=== PATIENT | female | born 2000 | race Caucasian/White ===

== ENCOUNTER 2023-08-13 00:09 | Inpatient (IN) | payer BC, SELFPAY ==
[~2023-08-13] VITALS: Ht 149.9 cm; Wt 44.9 kg
[2023-08-13 01:03] LABS: HEMATOCRIT 37.6 % (36.0-47.0); HEMOGLOBIN 13.1 g/dl (12.0-15.5); MEAN CORPUSCULAR HEMOGLOBIN 31.4 pg (27.0-33.0); MEAN CORPUSCULAR HGB CONC 34.8 g/dl (32.0-36.5); MEAN CORPUSCULAR VOLUME 90.2 fl (80.0-96.0); PLATELET COUNT, AUTOMATED 356 10^3/uL (150-450); RED BLOOD COUNT 4.17 10^6/uL (4.00-5.40); WHITE BLOOD COUNT 12.6 10^3/uL (4.0-10.0)
[2023-08-13 01:31] LABS: AMPHETAMINES LEVEL URINE NEGATIVE (NEGATIVE); BARBITURATES URINE NEGATIVE (NEGATIVE); BENZODIAZEPINES URINE NEGATIVE (NEGATIVE); COCAINE METABOLITE URINE NEGATIVE (NEGATIVE); METHADONE URINE NEGATIVE (NEGATIVE); OPIATES URINE NEGATIVE (NEGATIVE); PHENCYCLIDINE URINE NEGATIVE (NEGATIVE)
[2023-08-13 01:32] LABS: CANNABINOIDS URINE POSITIVE (NEGATIVE)
[2023-08-13 01:33] LABS: ETHYL ALCOHOL (ETHANOL) < 0.003 % (0.000-0.010)
[2023-08-13 01:35] LABS: ALBUMIN 4.4 G/DL (3.2-5.2); ALKALINE PHOSPHATASE 56 U/L (46-116); ALT/SGPT 11 U/L (7.0-40); AST/SGOT 15 U/L (<34); BILIRUBIN,DIRECT 0.2 MG/DL (<0.4); BILIRUBIN,TOTAL 0.6 MG/DL (0.3-1.2); BLOOD UREA NITROGEN 9 MG/DL (9-23); CARBON DIOXIDE LEVEL 20 MMOL/L (20-31); CHLORIDE LEVEL 106 MMOL/L (98-107); CREATININE FOR GFR 0.51 MG/DL (0.55-1.30); GLOMERULAR FILTRATION RATE > 60.0 (>60); GLUCOSE, FASTING 93 MG/DL (60-100); POTASSIUM SERUM 3.6 MMOL/L (3.5-5.1); SALICYLATE LEVEL < 3.0 MG/DL (<30); SODIUM LEVEL 136 MMOL/L (136-145); TOTAL PROTEIN 7.1 G/DL (5.7-8.2)
[2023-08-13 01:37] LABS: THYROID STIMULATING HORMONE 2.141 uIU/ML (0.55-4.78)
[2023-08-13 01:40] LABS: HCG, SERUM QUALITATIVE NEGATIVE (NEGATIVE)
[2023-08-13] MEDS: OLANZapine ORAL DISINTEGRATING TAB 5MG PO ONE (05:15)
[2023-08-13] MEDS: UNRESOLVED CLARIFICATION ENTRY XX STA (05:45)
[2023-08-13] MEDS ORDERED: MAALOX 30 ML SUSP *UDC PO PRN (09:05)
[2023-08-13] MEDS ORDERED: MONT10TA97 PO (10:15)
[2023-08-13] MEDS ORDERED: LEVA45AE INH (10:15)
[2023-08-13] MEDS ORDERED: HOME MED LIST COMPLETE! XX SCH (10:15)
[2023-08-13] MEDS ORDERED: CETI-24 PO (10:15)
[2023-08-13 14:30] VITALS: BP 116/79; TEMP 97.5; O2SAT 100
[2023-08-13] MEDS: traZODone 50 MG TAB PO PRN (21:11)
[2023-08-13] MEDS: diphenhydrAMINE 25MG CAP PO PRN (21:47)
[2023-08-13] MEDS: OLANZapine 5 MG TAB PO PRN (22:35)
[2023-08-14] MEDS: ACETAMINOPHEN TAB 650MG DOSE (2X325MG) PO PRN (05:21)
[2023-08-14 06:34] VITALS: BP 121/59; TEMP 99.2; O2SAT 98
[2023-08-14 09:21] LABS: HEMATOCRIT 39.7 % (36.0-47.0); HEMOGLOBIN 13.8 g/dl (12.0-15.5); MEAN CORPUSCULAR HEMOGLOBIN 31.2 pg (27.0-33.0); MEAN CORPUSCULAR HGB CONC 34.8 g/dl (32.0-36.5); MEAN CORPUSCULAR VOLUME 89.8 fl (80.0-96.0); PLATELET COUNT, AUTOMATED 340 10^3/uL (150-450); RED BLOOD COUNT 4.42 10^6/uL (4.00-5.40)
[2023-08-14] MEDS: risperiDONE 0.5 MG TAB PO SCH (10:53)
[2023-08-14] MEDS: LORazepam 1 MG TAB PO ONE (15:02)
[2023-08-14 16:19] VITALS: BP 107/69; TEMP 98; O2SAT 100
[2023-08-14] MEDS: IBUPROFEN 400MG TAB PO PRN (23:28)
[2023-08-15 06:32] VITALS: BP 102/64; TEMP 98.1; O2SAT 100
[2023-08-15 07:00] LABS: CHOLESTEROL RISK RATIO 4.66 (<5); HDL CHOLESTEROL 28.7 MG/DL (>40); LDL CHOLESTEROL 90.9 MG/DL (<100); NON-HDL-C 105.3 MG/DL
[2023-08-15] MEDS: risperiDONE 0.5 MG TAB PO SCH (08:45)
[2023-08-15] MEDS: MOM 30ML SUSPENSION UDC PO PRN (11:08)
[2023-08-15 17:33] VITALS: BP 132/88; TEMP 98.8
[2023-08-15] MEDS: ONDANSETRON 4MG ORAL DISINTEGRATING TAB PO PRN (19:03)
[2023-08-15] MEDS: risperiDONE 1 MG TAB PO SCH (20:55)
[2023-08-16 06:03] VITALS: BP 120/60; TEMP 98.2; O2SAT 99
[2023-08-16] MEDS: risperiDONE 1 MG TAB PO SCH (08:32)
[2023-08-16 17:40] VITALS: BP 120/78; TEMP 98.6; O2SAT 97
[2023-08-17 06:33] VITALS: BP 121/88; TEMP 97.1; O2SAT 96
[2023-08-17] MEDS: OLANZapine ORAL DISINTEGRATING TAB 5MG PO STA (12:10)
[2023-08-17 17:08] VITALS: BP 126/83; TEMP 98.6
[2023-08-18 06:28] VITALS: BP 111/72; TEMP 98.2; O2SAT 98
[2023-08-18] MEDS: [UNRECOGNIZED DRUG - OTHER] EXT SCH (09:00)
[2023-08-18] MEDS ORDERED: PILL CUTTER 1 EACH XX PRN (12:00)
[2023-08-18 15:21] VITALS: BP 127/84; TEMP 97.7; O2SAT 98
[2023-08-18] MEDS: risperiDONE 1 MG TAB PO SCH (20:07)
[2023-08-18] MEDS ORDERED: risperiDONE 1 MG TAB PO SCH (21:00)
[2023-08-19 06:34] VITALS: BP 98/59; TEMP 97.7; O2SAT 98
[2023-08-19 16:05] VITALS: BP 136/82; TEMP 98.6; O2SAT 98
[2023-08-19] MEDS: risperiDONE 2 MG TAB PO SCH (21:00)
[2023-08-20] MEDS: OLANZapine ORAL DISINTEGRATING TAB 5MG PO PRN (06:26)
[2023-08-20 16:17] VITALS: BP 116/73; TEMP 98.8; O2SAT 99
[2023-08-21 06:46] VITALS: BP 112/70; TEMP 97.7; O2SAT 99
[2023-08-21 16:05] VITALS: BP 118/74; TEMP 98.8; O2SAT 99
[2023-08-22 06:47] VITALS: BP 122/64; TEMP 98.4; O2SAT 95
[2023-08-22 18:35] VITALS: BP 117/71; TEMP 98.3; O2SAT 100
[2023-08-22] MEDS ORDERED: ENTER DRUG NAME HERE (PATIENT'S OWN MED) EXT PRN (20:00)
[2023-08-23 06:25] VITALS: BP 116/56; TEMP 97.9; O2SAT 98
[2023-08-23 15:21] VITALS: BP 147/77; TEMP 97.1; O2SAT 100
[2023-08-24 06:47] VITALS: BP 119/65; TEMP 97.6; O2SAT 98
[2023-08-24] MEDS ORDERED: RISP-106 PO (07:54)
[2023-08-24] MEDS ORDERED: TRAZ-252 PO (07:54)
[2023-08-24] MEDS ORDERED: RISP1TAB42 PO (07:54)
== END 2023-08-24 11:01 | disposition home or self-care (01) | DRG 751 ==
LOC: M ED 00:09 → M ED INP 09:03 → M PSY 14:13
PROVIDERS: ADMIT Student in an Organized Health Care Education/Training Program; ATTEND Student in an Organized Health Care Education/Training Program
DX: F29 Unspecified psychosis not due to a substance or known physiological condition (principal); F12.159 Cannabis abuse with psychotic disorder, unspecified; Z79.899 Other long term (current) drug therapy

== ENCOUNTER 2023-09-03 12:15 | Inpatient (IN) | payer BC ==
[~2023-09-03] VITALS: Ht 149.9 cm; Wt 45.4 kg
[~2023-09-03 12:15] MED LIST: CETI-24 PO; LEVA45AE INH; MONT10TA97 PO; RISP-106 PO; RISP1TAB42 PO; TRAZ-252 PO
[2023-09-03 13:09] LABS: HEMATOCRIT 36.9 % (36.0-47.0); HEMOGLOBIN 12.6 g/dl (12.0-15.5); MEAN CORPUSCULAR HEMOGLOBIN 31.7 pg (27.0-33.0); MEAN CORPUSCULAR HGB CONC 34.1 g/dl (32.0-36.5); MEAN CORPUSCULAR VOLUME 92.7 fl (80.0-96.0); PLATELET COUNT, AUTOMATED 317 10^3/uL (150-450); RED BLOOD COUNT 3.98 10^6/uL (4.00-5.40); WHITE BLOOD COUNT 6.5 10^3/uL (4.0-10.0)
[2023-09-03 13:14] LABS: AMPHETAMINES LEVEL URINE NEGATIVE (NEGATIVE); BARBITURATES URINE NEGATIVE (NEGATIVE); BENZODIAZEPINES URINE NEGATIVE (NEGATIVE)
[2023-09-03 13:15] LABS: CANNABINOIDS URINE NEGATIVE (NEGATIVE); COCAINE METABOLITE URINE NEGATIVE (NEGATIVE); METHADONE URINE NEGATIVE (NEGATIVE); OPIATES URINE NEGATIVE (NEGATIVE); PHENCYCLIDINE URINE NEGATIVE (NEGATIVE)
[2023-09-03 13:42] LABS: ETHYL ALCOHOL (ETHANOL) 0.005 % (0.000-0.010)
[2023-09-03 13:43] LABS: SALICYLATE LEVEL < 3.0 MG/DL (<30)
[2023-09-03 13:54] LABS: ALKALINE PHOSPHATASE 61 U/L (46-116); ALT/SGPT 29 U/L (7.0-40); AST/SGOT < 8 U/L (<34); BILIRUBIN,DIRECT 0.1 MG/DL (<0.4); BILIRUBIN,TOTAL 0.4 MG/DL (0.3-1.2); BLOOD UREA NITROGEN < 5 MG/DL (9-23); CALCIUM LEVEL 8.7 MG/DL (8.5-10.1); CARBON DIOXIDE LEVEL 25 MMOL/L (20-31); CHLORIDE LEVEL 110 MMOL/L (98-107); CREATININE FOR GFR 0.45 MG/DL (0.55-1.30); GLOMERULAR FILTRATION RATE > 60.0 (>60); GLUCOSE, FASTING 94 MG/DL (60-100); POTASSIUM SERUM 4.1 MMOL/L (3.5-5.1); SODIUM LEVEL 141 MMOL/L (136-145); THYROID STIMULATING HORMONE 1.915 uIU/ML (0.55-4.78); TOTAL PROTEIN 6.7 G/DL (5.7-8.2)
[2023-09-03] MEDS ORDERED: MOM 30ML SUSPENSION UDC PO PRN (14:55)
[2023-09-03] MEDS: NICOTINE 14 MG/24 HR TRANSDERMAL TD SCH (15:30)
[2023-09-03] MEDS: diphenhydrAMINE 25MG CAP PO PRN (15:34)
[2023-09-03] MEDS ORDERED: RISP2TAB32 PO (15:35)
[2023-09-03] MEDS ORDERED: TRAZ-252 PO (15:35)
[2023-09-03] MEDS ORDERED: HOME MED LIST COMPLETE! XX SCH (15:35)
[2023-09-03] MEDS ORDERED: BUSP5TA PO (15:35)
[2023-09-03] MEDS ORDERED: RISP-105 PO (15:35)
[2023-09-03] MEDS: ACETAMINOPHEN TAB 650MG DOSE (2X325MG) PO PRN (15:39)
[2023-09-03 17:41] VITALS: BP 114/72; TEMP 97.6; O2SAT 97
[2023-09-03] MEDS: traZODone 50 MG TAB PO PRN (20:14)
[2023-09-03] MEDS: OLANZapine ORAL DISINTEGRATING TAB 5MG PO PRN (20:15)
[2023-09-03] MEDS: MAALOX 30 ML SUSP *UDC PO PRN (21:16)
[2023-09-04 06:42] VITALS: BP 120/60; TEMP 97.8; O2SAT 100
[2023-09-04 17:28] VITALS: BP 124/84; TEMP 97.8; O2SAT 100
[2023-09-04] MEDS: PALIPERIDONE 3MG ER TAB (INVEGA) PO SCH (20:13)
[2023-09-04] MEDS: IBUPROFEN 400MG TAB PO PRN (20:59)
[2023-09-05 06:30] VITALS: BP 112/56; TEMP 97.8; O2SAT 98
[2023-09-05 06:57] VITALS: BP 82/40; TEMP 97.9; TEMP 98; O2SAT 100
[2023-09-05 07:10] VITALS: BP 95/63
[2023-09-05 08:12] LABS: CHOLESTEROL RISK RATIO 3.29 (<5); HDL CHOLESTEROL 40.4 MG/DL (>40); LDL CHOLESTEROL 82.6 MG/DL (<100); NON-HDL-C 92.6 MG/DL
[2023-09-05 18:51] VITALS: BP 116/73; TEMP 98.7; O2SAT 98
[2023-09-05] MEDS: traZODone 25MG PER 1/2 TABLET PO PRN (20:32)
[2023-09-06 06:07] VITALS: BP 109/54; TEMP 97.6; O2SAT 95
[2023-09-06] MEDS: PALIPERIDONE 3MG ER TAB (INVEGA) PO SCH (09:26)
[2023-09-06 16:51] VITALS: BP 112/72; TEMP 98.7
[2023-09-07 06:29] VITALS: BP 105/63; TEMP 97.3; O2SAT 99
[2023-09-07] MEDS ORDERED: FLUoxetine 20MG CAP PO SCH (09:00)
[2023-09-07 17:35] VITALS: BP 114/74; TEMP 98.1
[2023-09-08 06:35] VITALS: BP 116/65; TEMP 98.2; O2SAT 96
[2023-09-08] MEDS ORDERED: traZODone 50 MG TAB PO PRN (09:30)
[2023-09-08] MEDS: BENZTROPINE 0.5 MG TAB PO SCH (09:34)
[2023-09-08] MEDS: LORazepam 0.5 MG TAB PO ONE (10:23)
[2023-09-08 17:39] VITALS: BP 114/86; TEMP 97.4; O2SAT 97
[2023-09-08] MEDS: MIRTAZAPINE 15 MG TAB PO SCH (20:10)
[2023-09-08] MEDS: risperiDONE 1 MG TAB PO SCH (20:10)
[2023-09-09 06:45] VITALS: BP 123/66; TEMP 98.6; O2SAT 98
[2023-09-09 16:29] VITALS: BP 117/74; TEMP 98.7; O2SAT 99
[2023-09-10 06:14] VITALS: BP 105/60; TEMP 97.8; O2SAT 98
[2023-09-10 15:56] VITALS: BP 127/79; TEMP 98.4; O2SAT 100
[2023-09-11 06:32] VITALS: BP 103/63; TEMP 97.4; O2SAT 97
[2023-09-11 16:06] VITALS: BP 118/73; TEMP 98.8; O2SAT 100
[2023-09-12 06:47] VITALS: BP 109/69; TEMP 98.4; O2SAT 98
[2023-09-12 16:45] VITALS: BP 117/71; TEMP 98; O2SAT 98
[2023-09-13 06:12] VITALS: BP 101/59; TEMP 97.1; O2SAT 100
[2023-09-13] MEDS ORDERED: MIRT-10 PO (08:32)
[2023-09-13] MEDS ORDERED: RISP1TAB42 PO (08:32)
[2023-09-13] MEDS ORDERED: HYDR-3363 PO (08:32)
== END 2023-09-13 10:41 | disposition home or self-care (01) | DRG 750 ==
LOC: M ED 12:15 → M ED INP 14:52 → M PSY 17:24
PROVIDERS: ADMIT Student in an Organized Health Care Education/Training Program; ATTEND Student in an Organized Health Care Education/Training Program
DX: F20.9 Schizophrenia, unspecified (principal); F43.10 Post-traumatic stress disorder, unspecified; F44.9 Dissociative and conversion disorder, unspecified; J45.909 Unspecified asthma, uncomplicated; F12.90 Cannabis use, unspecified, uncomplicated; Z62.810 Personal history of physical and sexual abuse in childhood; Z79.899 Other long term (current) drug therapy; Z11.52 Encounter for screening for COVID-19; Z83.3 Family history of diabetes mellitus